=== PATIENT | female | born 1950 | race Caucasian/White ===

== ENCOUNTER → 2020-04-29 | Outpatient (CLI) | payer MEDICARE, OTHER | LOC: WOUNDCARE 13:34 | PROVIDERS: ATTEND Surgery | DX: E11.621 Type 2 diabetes mellitus with foot ulcer (principal); E11.42 Type 2 diabetes mellitus with diabetic polyneuropathy; E11.22 Type 2 diabetes mellitus with diabetic chronic kidney disease; N18.6 End stage renal disease; L97.424 Non-pressure chronic ulcer of left heel and midfoot with necrosis of bone; I70.244 Atherosclerosis of native arteries of left leg with ulceration of heel and midfoot; I87.322 Chronic venous hypertension (idiopathic) with inflammation of left lower extremity; E44.1 Mild protein-calorie malnutrition; I50.9 Heart failure, unspecified; Z89.511 Acquired absence of right leg below knee | CPT/HCPCS: A6260; G0463; 99203 ==

== ENCOUNTER → 2020-04-29 | Outpatient (CLI) | payer MEDICARE, OTHER ==
--- NOTE | 2020-04-29 17:01 | Diagnostic Imaging Report ---
INDICATION: Left foot pain and ulcer. AP, oblique, lateral views of the left foot are obtained. There is no prior study for comparison. 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 The distal aspects of the 3rd, 4th, and 5th metatarsals are absent. There is a radiopaque rounded device overlying the 3rd metatarsal distally. The 3rd digit is absent beyond the mid phalanx. There is chronic fracture deformity of the 4th proximal phalanx. 5th digit is present but not in articulation with the metatarsal. There are diffuse degenerative changes throughout the tarsal bones. There is osteopenia. There is posterior calcaneal spurring. There are extensive vascular calcifications. IMPRESSION: Extensive chronic findings in left foot as described above. No definite acute finding. Dictated by: Dictated on workstation # [id number]
== END ==
LOC: RAD 15:22
PROVIDERS: ATTEND Surgery
DX: E11.621 Type 2 diabetes mellitus with foot ulcer (principal); E11.42 Type 2 diabetes mellitus with diabetic polyneuropathy; L97.424 Non-pressure chronic ulcer of left heel and midfoot with necrosis of bone; I70.244 Atherosclerosis of native arteries of left leg with ulceration of heel and midfoot; I87.332 Chronic venous hypertension (idiopathic) with ulcer and inflammation of left lower extremity; E44.1 Mild protein-calorie malnutrition; N18.6 End stage renal disease; I50.9 Heart failure, unspecified; Z89.511 Acquired absence of right leg below knee
CPT/HCPCS: 73630

== ENCOUNTER → 2020-05-06 | Outpatient (CLI) | payer MEDICARE, OTHER | LOC: EDUNIT# 04-29 14:28 → WOUNDCARE 13:04 | PROVIDERS: ATTEND Surgery | DX: E11.621 Type 2 diabetes mellitus with foot ulcer (principal); L97.423 Non-pressure chronic ulcer of left heel and midfoot with necrosis of muscle; E11.42 Type 2 diabetes mellitus with diabetic polyneuropathy; I70.244 Atherosclerosis of native arteries of left leg with ulceration of heel and midfoot; I87.322 Chronic venous hypertension (idiopathic) with inflammation of left lower extremity; E44.1 Mild protein-calorie malnutrition; E11.22 Type 2 diabetes mellitus with diabetic chronic kidney disease; N18.6 End stage renal disease; I50.9 Heart failure, unspecified; E11.52 Type 2 diabetes mellitus with diabetic peripheral angiopathy with gangrene; Z89.511 Acquired absence of right leg below knee | CPT/HCPCS: 11043 ==

== ENCOUNTER → 2020-05-13 | Outpatient (CLI) | payer MEDICARE, OTHER | LOC: EDUNIT# 04-29 13:30 → WOUNDCARE 13:17 | PROVIDERS: ATTEND Surgery | DX: E11.621 Type 2 diabetes mellitus with foot ulcer (principal); E11.42 Type 2 diabetes mellitus with diabetic polyneuropathy; E11.52 Type 2 diabetes mellitus with diabetic peripheral angiopathy with gangrene; E11.22 Type 2 diabetes mellitus with diabetic chronic kidney disease; I70.262 Atherosclerosis of native arteries of extremities with gangrene, left leg; I87.332 Chronic venous hypertension (idiopathic) with ulcer and inflammation of left lower extremity; L97.422 Non-pressure chronic ulcer of left heel and midfoot with fat layer exposed; N18.6 End stage renal disease; I50.9 Heart failure, unspecified; E44.1 Mild protein-calorie malnutrition; Z89.511 Acquired absence of right leg below knee | CPT/HCPCS: 11042; A6196 ==

== ENCOUNTER → 2020-05-20 | Outpatient (CLI) | payer MEDICARE, OTHER | LOC: LAB 14:44 | PROVIDERS: ATTEND Surgery | DX: E11.621 Type 2 diabetes mellitus with foot ulcer (principal); E11.42 Type 2 diabetes mellitus with diabetic polyneuropathy; L97.423 Non-pressure chronic ulcer of left heel and midfoot with necrosis of muscle; I70.244 Atherosclerosis of native arteries of left leg with ulceration of heel and midfoot; E11.22 Type 2 diabetes mellitus with diabetic chronic kidney disease; I87.322 Chronic venous hypertension (idiopathic) with inflammation of left lower extremity; E44.1 Mild protein-calorie malnutrition; I50.9 Heart failure, unspecified; N18.6 End stage renal disease; Z89.511 Acquired absence of right leg below knee | CPT/HCPCS: 36415; 85652; 86141 ==

== ENCOUNTER → 2020-05-20 | Outpatient (CLI) | payer MEDICARE, OTHER | LOC: WOUNDCARE 13:08 | PROVIDERS: ATTEND Surgery | DX: L97.423 Non-pressure chronic ulcer of left heel and midfoot with necrosis of muscle (principal); E11.621 Type 2 diabetes mellitus with foot ulcer; E11.42 Type 2 diabetes mellitus with diabetic polyneuropathy; I70.244 Atherosclerosis of native arteries of left leg with ulceration of heel and midfoot; I87.332 Chronic venous hypertension (idiopathic) with ulcer and inflammation of left lower extremity; N18.6 End stage renal disease; E44.1 Mild protein-calorie malnutrition; I50.9 Heart failure, unspecified; Z89.512 Acquired absence of left leg below knee | CPT/HCPCS: 11042; A6196 ==

== ENCOUNTER → 2020-05-27 | Outpatient (CLI) | payer MEDICARE, OTHER | LOC: WOUNDCARE 13:30 | PROVIDERS: ATTEND Surgery | DX: E11.621 Type 2 diabetes mellitus with foot ulcer (principal); L97.422 Non-pressure chronic ulcer of left heel and midfoot with fat layer exposed; E11.42 Type 2 diabetes mellitus with diabetic polyneuropathy; I70.244 Atherosclerosis of native arteries of left leg with ulceration of heel and midfoot; I87.322 Chronic venous hypertension (idiopathic) with inflammation of left lower extremity; E44.1 Mild protein-calorie malnutrition; E11.22 Type 2 diabetes mellitus with diabetic chronic kidney disease; N18.6 End stage renal disease; I50.9 Heart failure, unspecified; E11.52 Type 2 diabetes mellitus with diabetic peripheral angiopathy with gangrene; Z89.511 Acquired absence of right leg below knee | CPT/HCPCS: 11042; A6196; G0463 ==

== ENCOUNTER → 2020-06-03 | Outpatient (CLI) | payer MEDICARE, OTHER | LOC: WOUNDCARE 13:22 | PROVIDERS: ATTEND Surgery | DX: E11.621 Type 2 diabetes mellitus with foot ulcer (principal); E11.42 Type 2 diabetes mellitus with diabetic polyneuropathy; L97.422 Non-pressure chronic ulcer of left heel and midfoot with fat layer exposed; I70.244 Atherosclerosis of native arteries of left leg with ulceration of heel and midfoot; I87.322 Chronic venous hypertension (idiopathic) with inflammation of left lower extremity; E44.1 Mild protein-calorie malnutrition; I13.2 Hypertensive heart and chronic kidney disease with heart failure and with stage 5 chronic kidney disease, or end stage renal disease; I50.9 Heart failure, unspecified; N18.6 End stage renal disease; Z89.511 Acquired absence of right leg below knee; G47.30 Sleep apnea, unspecified; E11.51 Type 2 diabetes mellitus with diabetic peripheral angiopathy without gangrene; M10.9 Gout, unspecified; M19.90 Unspecified osteoarthritis, unspecified site | CPT/HCPCS: 99212 ==